=== PATIENT | male | born 1955 | race Caucasian/White ===

== ENCOUNTER 2016-11-11 15:56 | Emergency (ER) | payer OTHER ==
[~2016-11-11] VITALS: Ht 175.3 cm; Wt 79.4 kg
[2016-11-11] VITALS (10 sets, daily range): BP systolic 80–121; BP diastolic 42–65
[2016-11-11 16:35] LABS: MEAN CORPUSCULAR HEMOGLOBIN 34.1 PG (27.0-31.0); MEAN CORPUSCULAR HGB CONC 33.6 G/DL (32.0-36.0); MEAN CORPUSCULAR VOLUME 101 FL (80-99); MEAN PLATELET VOLUME 5.6 FL (6.5-10.1); PLATELET COUNT 280 K/UL (150-450); RED CELL DISTRIBUTION WIDTH 12.2 % (11.6-14.8); WHITE BLOOD COUNT 12.7 K/UL (4.8-10.8)
[2016-11-11 16:41] LABS: PROTHROMBIN TIME 9.9 SEC (9.30-11.50)
[2016-11-11 16:52] LABS: TROPONIN I < 0.30 ng/mL (<=0.30)
[2016-11-11 16:57] LABS: ALANINE AMINOTRANSFERASE 9 U/L (3-41); ALBUMIN/GLOBULIN RATIO 1.2 (1.0-2.7); ASPARTATE AMINO TRANSFERASE 10 U/L (5-40); CALCIUM 9.1 mg/dL (8.6-10.2); CHLORIDE 96 mEQ/L (98-107); CREATININE 2.3 mg/dL (0.7-1.2); GLOMERULAR FILTRATION RATE 29.2 mL/min (>60); HEMOLYSIS 2; LIPASE 35 U/L (< 60); POTASSIUM 5.2 mEQ/L (3.4-4.9); SODIUM 136 mEQ/L (135-145); TOTAL PROTEIN 6.4 g/dL (6.6-8.7)
[2016-11-11 17:06] LABS: ANION GAP 24 (5-15); CARBON DIOXIDE 16 mEQ/L (20-30)
[2016-11-11 17:07] LABS: CKMB 2.8 ng/mL (< 6.7)
[2016-11-11 17:28] LABS: BAND NEUTROPHILS % (MANUAL) 2 % (0-8); LYMPHOCYTES % (MANUAL) 5 % (20-45); NEUTROPHILS % (MANUAL) 88 % (45-75); TOTAL CELLS COUNTED 100
[2016-11-11 17:29] LABS: ANISOCYTOSIS 1+; BASOPHILS % (MANUAL) 0 % (0-2); EOSINOPHILS % (MANUAL) 0 % (0-3); MACROCYTES 1+; PLATELET ESTIMATE ADEQUATE; POLYCHROMASIA 1+
[2016-11-11 17:30] LABS: PLATELET MORPHOLOGY NORMAL
[2016-11-11] MEDS ORDERED: Pantoprazole 80 MG in NS 250 ML IV ONE (17:30)
[2016-11-11] MEDS ORDERED: Pantoprazole Inj ONE (17:55)
[2016-11-11 17:58] LABS: REFLEX LACTIC ACID YES OR NO YES
--- NOTE | 2016-11-11 19:37 | Emergency Room Report ---
History of Present Illness General Chief Complaint: Generalized Weakness Source: Patient, EMS Present Illness HPI Patient sent by paramedics Reports having weakness and lightheadedness patient was also experiencing some dizziness Denies any chest pain or shortness of breath denies any back or flank pain He does have some exertional dyspnea however Denies any vomiting or diarrhea he has noticed darkening of his stool color over the past 3 days Patient does take Plavix for heart related issues denies any vomiting of blood denies any fall or syncope Allergies: Coded Allergies: No Known Allergies (Unverified , 11/11/16) Patient History Past Medical History: see triage record Pertinent Family History: none Reviewed Nursing Documentation: PMH: Agreed, PSxH: Agreed Nursing Documentation-PMH Hx Cardiac Problems: Yes Hx Hypertension: Yes Hx Diabetes: Yes Review of Systems All Other Systems: negative except mentioned in HPI Physical Exam Vital Signs Date Time Temp Pulse Resp B/P Pulse Ox O2 Delivery O2 Flow Rate FiO2 11/11/16 15:52 98.2 104 16 96/53 99 Room Air Sp02 EP Interpretation: reviewed, normal General Appearance: other - appears pale Head: normocephalic, atraumatic Eyes: bilateral eye EOMI, bilateral eye PERRL ENT: hearing grossly normal, normal pharynx, TMs + canals normal, uvula midline Neck: full range of motion, supple, no meningismus, no bony tend Respiratory: lungs clear, normal breath sounds, no rhonchi, no respiratory distress, no retraction, no accessory muscle use Cardiovascular #1: normal peripheral pulses, regular rate, rhythm, no edema, no gallop, no JVD, no murmur Gastrointestinal: normal bowel sounds, non tender, soft, no mass, no organomegaly, non-distended, no guarding, no hernia, no pulsatile mass, no rebound Rectal: other Genitourinary: no CVA tenderness Musculoskeletal: other - Left below the knee amputation Neurologic: oriented x3, responsive, director telecommunications III-XII nml as tested, motor strength/ tone normal, sensory intact Psychiatric: mood/affect normal Skin: palpation normal, pallor Lymphatic: normal inspection, no adenopathy Procedures Critical Care Time Critical Care Time 40 minutes for critical findings Multiple re\re evaluations Contact with outside physician not including any procedural time Medical Decision Making Diagnostic Impression: Primary Impression: GI bleed ER Course Patient is a fairly complex patient with multiple differential to consideration including but not limited to cardiac cardiopulmonary and vascular emergencies Patient's hemoglobin at this time comes back extremely low Kidney function is also abnormal With a significantly elevated BUN Raising increased concern for GI bleed Patient was given IV Protonix blood transfusion has been initiated Patient requires admission for further inpatient care At this time remains hemodynamically stable with blood pressure systolic over 100 Heart rate is at 85 And secondary to primary provider at [facility] patient and set for transfer in further stablized condition Labs Test 11/11/16 16:15 11/11/16 16:30 White Blood Count 12.7 K/UL (4.8-10.8) Red Blood Count 1.90 M/UL (4.70-6.10) Hemoglobin 6.5 G/DL (14.2-18.0) Hematocrit 19.2 % (42.0-52.0) Mean Corpuscular Volume 101 FL (80-99) Mean Corpuscular Hemoglobin 34.1 PG (27.0-31.0) Mean Corpuscular Hemoglobin Concent 33.6 G/DL (32.0-36.0) Red Cell Distribution Width 12.2 % (11.6-14.8) Platelet Count 280 K/UL (150-450) Mean Platelet Volume 5.6 FL (6.5-10.1) Neutrophils (%) (Auto) % (45.0-75.0) Lymphocytes (%) (Auto) % (20.0-45.0) Monocytes (%) (Auto) % (1.0-10.0) Eosinophils (%) (Auto) % (0.0-3.0) Basophils (%) (Auto) % (0.0-2.0) Differential Total Cells Counted 100 Neutrophils % (Manual) 88 % (45-75) Lymphocytes % (Manual) 5 % (20-45) Monocytes % (Manual) 5 % (1-10) Eosinophils % (Manual) 0 % (0-3) Basophils % (Manual) 0 % (0-2) Band Neutrophils 2 % (0-8) Platelet Estimate Adequate Platelet Morphology Normal Polychromasia 1+ Anisocytosis 1+ Macrocytosis 1+ Prothrombin Time 9.9 SEC (9.30-11.50) Prothromb Time International Ratio 1.0 (0.9-1.1) Activated Partial Thromboplast Time 22 SEC (23-33) Sodium Level 136 mEQ/L (135-145) Potassium Level 5.2 mEQ/L (3.4-4.9) Chloride Level 96 mEQ/L (98-107) Carbon Dioxide Level 16 mEQ/L (20-30) Anion Gap 24 (5-15) Blood Urea Nitrogen 124 mg/dL (7-23) Creatinine 2.3 mg/dL (0.7-1.2) Estimat Glomerular Filtration Rate 29.2 mL/min (>60) Glucose Level 392 mg/dL (74-106) Calcium Level 9.1 mg/dL (8.6-10.2) Total Bilirubin < 0.2 mg/dL (0.0-1.2) Aspartate Amino Transf (AST/SGOT) 10 U/L (5-40) Alanine Aminotransferase (ALT/SGPT) 9 U/L (3-41) Alkaline Phosphatase 83 U/L (40-129) Total Creatine Kinase 82 U/L (38-174) Creatine Kinase MB 2.8 ng/mL (< 6.7) Creatine Kinase MB Relative Index 3.4 Troponin I < 0.30 ng/mL (<=0.30) Pro-B-Type Natriuretic Peptide 3360 pg/mL (0-125) Total Protein 6.4 g/dL (6.6-8.7) Albumin 3.5 g/dL (3.5-5.2) Globulin 2.9 g/dL Albumin/Globulin Ratio 1.2 (1.0-2.7) Lipase 35 U/L (< 60) Lactic Acid Level 3.80 mmol/L (0.66-2.22) Rhythm Strip Diag. Results EP Interpretation: yes Rate: 74 Rhythm: NSR, no PVC's, no ectopy Chest X-Ray Diagnostic Results EP Interpretation: Yes Findings: no consolidation, no effusion, no pneumothorax Number of Views: 1 Last Vital Signs Date Time Temp Pulse Resp B/P Pulse Ox O2 Delivery O2 Flow Rate FiO2 11/11/16 19:29 98.8 93 16 105/59 98 Room Air Status: improved Disposition: XFER SHT-TRM HOSP Condition: Serious Referrals: [facility] (PCP) ALEC FORTE D.O. Nov 11, 2016 19:37
--- NOTE | 2016-11-12 09:55 | Diagnostic Imaging Report ---
Indications: Chest pain Technique: Portable AP chest Findings: Comparison: None Cardiac silhouette upper limits of normal in size. Focal prominence of bronchovascular markings medial right lung base, obscuring the lower portion of the right cardiac silhouette. Left lung, bilateral pleural surfaces clear. Pulmonary vasculature within normal limits. No abnormal mediastinal widening. Bones and extra pulmonary soft tissues unremarkable. IMPRESSION: Focal opacity medial right lung base may simply represent crowding of bronchovascular markings secondary to suboptimal inspiration. Prominent epicardial fat pad, focal atelectasis or pneumonia not excludable. Upright PA and lateral chest radiographs with better inspiratory effort and optimal technique recommended for more complete evaluation. Borderline cardiomegaly
--- NOTE | 2016-11-12 19:46 | Cardiology Report ---
APPROVED REPORT EKG Measurement Heart [id number] Normal sinus rhythm Abnormal ECG
== END 2016-11-11 21:24 | disposition short-term general hospital (02) ==
LOC: EDBD 15:56 → EDBEDREQ 16:52 → EMR 17:15 → CANBEDREQ 20:57 → EMR 21:24
DX: K92.2 Gastrointestinal hemorrhage, unspecified (principal); Z79.02 Long term (current) use of antithrombotics/antiplatelets; I10 Essential (primary) hypertension; E11.9 Type 2 diabetes mellitus without complications
CPT/HCPCS: 36415; 71010; 80053; 82550; 82553; 82962; 83605; 83690; 83880; 84484; 85007; 85025; 85610; 85730; 86850; 86900; 86901; 86920; 87040; 87181; 93005; 96361; 96374; 99291; C9113; J7050; P9016